=== PATIENT | female | born 1945 | race Caucasian/White ===

== ENCOUNTER → 2016-07-17 | Outpatient (CLI) | payer MEDICARE ==
--- NOTE | 2016-07-17 10:07 | RAD ---
EXAM DESCRIPTION: Pelvis series. CLINICAL HISTORY: Pelvic pain. COMPARISON: June 20, 2016 TECHNIQUE: One view was submitted for evaluation. FINDINGS: No fracture, dislocation, or radiopaque foreign body is seen. Pelvic ring appears intact. Soft tissues are unremarkable. Joint space loss noted within bilateral hips compatible with degenerative change. IMPRESSION: No sacral sclerosis to suggest an insufficiency fracture at this time. Electronically signed by: Donovan Luna MD 07/17/2016 10:06
--- NOTE | 2016-07-17 10:09 | RAD ---
EXAM DESCRIPTION: XR SACRUM COCCYX 2 OR MORE VIEWS CLINICAL HISTORY: 71 y/o ,F, FX OF SACRUM COMPARISON: None. IMPRESSION: Three views of the sacrum are submitted for interpretation. No sclerosis noted with food does not insufficiency fracture at this time. He angulation of the sacrum and coccyx is stable when compared to the CT from June 20, 2016. If an insufficiency fracture is questioned MRI or bone scan is suggested. Electronically signed by: Donovan Luna MD 07/17/2016 10:07
== END ==
LOC: RAD 08:35
PROVIDERS: ATTEND Orthopaedic Surgery
DX: S32.110D Nondisplaced Zone I fracture of sacrum, subsequent encounter for fracture with routine healing (principal)

== ENCOUNTER → 2017-02-19 | Outpatient (CLI) | payer MEDICARE ==
--- NOTE | 2017-02-19 14:02 | RAD ---
EXAM DESCRIPTION: Hip,Right 2 Views (accession [id number]), Pelvis (accession [id number]) CLINICAL HISTORY: PAIN IN RIGHT HIP COMPARISON: July 17, 2016 TECHNIQUE: Two views of the right hip and single view of the pelvis FINDINGS: The bony structures are osteopenic but the bony pelvic ring is intact. Bilateral pelvic phleboliths are noted. The right hip demonstrates no fracture or dislocation with preserved joint space and modest hypertrophic lipping at the acetabular margin. IMPRESSION: Osteopenia and mild degenerative changes without acute injury. Electronically signed by: Daniel Horvath MD 02/19/2017 2:00 PM CDT
--- NOTE | 2017-02-19 14:02 | RAD ---
EXAM DESCRIPTION: Hip,Right 2 Views (accession [id number]), Pelvis (accession [id number]) CLINICAL HISTORY: PAIN IN RIGHT HIP COMPARISON: July 17, 2016 TECHNIQUE: Two views of the right hip and single view of the pelvis FINDINGS: The bony structures are osteopenic but the bony pelvic ring is intact. Bilateral pelvic phleboliths are noted. The right hip demonstrates no fracture or dislocation with preserved joint space and modest hypertrophic lipping at the acetabular margin. IMPRESSION: Osteopenia and mild degenerative changes without acute injury. Electronically signed by: Daniel Horvath MD 02/19/2017 2:00 PM CDT
== END | disposition home or self-care (01) ==
LOC: RAD 09:58
PROVIDERS: ATTEND Orthopaedic Surgery
DX: M25.551 Pain in right hip (principal)

== ENCOUNTER → 2019-01-21 | Outpatient (CLI) | payer MEDICARE, MEDICAID | LOC: RESP 10:33 | PROVIDERS: ATTEND General Practice | DX: R00.2 Palpitations (principal); I10 Essential (primary) hypertension ==